=== PATIENT | female | born 1995 | race Caucasian/White ===

== ENCOUNTER 2016-09-25 11:42 | Emergency (ER) | payer OTHER ==
[~2016-09-25] VITALS: Ht 165.1 cm; Wt 92.5 kg
[2016-09-25 12:00] VITALS: BP 156/50; PULSE 116; RESP 12; TEMP 98.8; O2SAT 99
[2016-09-25] MEDS ORDERED: ACETAMINOPHEN 500 MG TABLET PO ONE (12:45)
[2016-09-25 13:27] VITALS: BP 138/76; PULSE 91; RESP 18; TEMP 98.9; O2SAT 99
== END 2016-09-25 13:27 | disposition home or self-care (01) ==
LOC: SED 11:42
DX: J02.9 Acute pharyngitis, unspecified (principal)
CPT/HCPCS: 99283

== ENCOUNTER 2017-10-11 19:05 | Emergency (ER) | payer OTHER ==
[~2017-10-11] VITALS: Ht 165.1 cm; Wt 99.8 kg
[2017-10-11 19:19] VITALS: BP_SYST 152
[2017-10-11 21:50] VITALS: BP_SYST 147
== END 2017-10-11 21:50 | disposition home or self-care (01) ==
LOC: SED 19:05
DX: S60.221A Contusion of right hand, initial encounter (principal); S00.03XA Contusion of scalp, initial encounter; F07.81 Postconcussional syndrome; E03.9 Hypothyroidism, unspecified; N18.3 Chronic kidney disease, stage 3 (moderate); F17.200 Nicotine dependence, unspecified, uncomplicated; Z71.6 Tobacco abuse counseling; Y04.0XXA Assault by unarmed brawl or fight, initial encounter; Y93.89 Activity, other specified; Y92.89 Other specified places as the place of occurrence of the external cause; Y99.8 Other external cause status
CPT/HCPCS: 70450-TC; 81025; 93005; 99284

== ENCOUNTER 2017-11-27 14:39 | Emergency (ER) | payer OTHER ==
[~2017-11-27] VITALS: Ht 165.1 cm; Wt 99.8 kg
[2017-11-27 14:39] VITALS: BP_SYST 157
[2017-11-27] MEDS ORDERED: FLUORESCEIN SODIUM 1 MG OPHTHALMIC STRIP OP ONE (14:40)
[2017-11-27] MEDS ORDERED: TETRACAINE HCL 0.5% OPHTHALMIC DROPS 15 ML OP ONE (14:40)
[2017-11-27] MEDS ORDERED: HYDROcodone/ACETAMIN 5-325 MG TAB (NORCO/ VICODIN) PO ONE (15:15)
[2017-11-27 16:46] VITALS: BP_SYST 157
== END 2017-11-27 16:46 | disposition home or self-care (01) ==
LOC: SED 14:39
DX: S05.02XA Injury of conjunctiva and corneal abrasion without foreign body, left eye, initial encounter (principal); I12.9 Hypertensive chronic kidney disease with stage 1 through stage 4 chronic kidney disease, or unspecified chronic kidney disease; N18.3 Chronic kidney disease, stage 3 (moderate); E03.9 Hypothyroidism, unspecified; F31.9 Bipolar disorder, unspecified; F17.200 Nicotine dependence, unspecified, uncomplicated; X58.XXXA Exposure to other specified factors, initial encounter; Y93.89 Activity, other specified; Y92.89 Other specified places as the place of occurrence of the external cause; Y99.8 Other external cause status
CPT/HCPCS: 99283